=== PATIENT | male | born 1980 | race Caucasian/White ===

== ENCOUNTER 2018-10-16 07:31 | Emergency (ER) | payer OTHER ==
[2018-10-16 07:39] VITALS: BP 135/61
--- NOTE | 2018-10-16 07:54 | ED Physician Documentation ---
History of Present Illness - Stated complaint Stated Complaint: INFECTED WOUNDS - Chief complaint Chief Complaint: General - History obtained from History obtained from: Patient - History of Present Illness Timing: Other (This is a 37-year-old gentleman who is active duty in the [employer] has had recurrent problems with MRSA and has 3 lesions that are infected, one behind the left ear, one on the right medial thigh, and one on the left forearm. He was on antibiotics for same as recently as a month ago. No fevers.) Review of Systems Constitutional: denies: Fever, Chills Nose: reports: Reviewed and negative Cardiac: reports: Reviewed and negative Respiratory: reports: Reviewed and negative PD PAST MEDICAL HISTORY - Present Medications Home Medications: Ambulatory Orders Medication Instructions Recorded Confirmed Chlorhexidine Gluconate [Hibiclens] 10 ml TP DAILY #1 bot 10/16/18 Ibuprofen [Motrin] 800 mg PO Q8H PRN #30 tablet 10/16/18 Mupirocin 1 gm TP TID #2 oin.pf.bandar 10/16/18 Sulfamethoxazole/Trimethoprim 1 each PO BID #20 tablet 10/16/18 [Sulfamethoxazole-Tmp Ds Tablet] - Allergies Allergies/Adverse Reactions: Allergies Allergy/AdvReac Type Severity Reaction Status Date / Time No Known Drug Allergies Allergy Verified 10/16/18 07:39 - Social History Does the pt smoke?: No Smoking Status: Never smoker Does the pt drink ETOH?: No Does the pt have substance abuse?: No PD ED PE NORMAL - Vitals Vital signs reviewed: Yes - General General: Alert and oriented X 3, No acute distress - Extremities Extremities: Other (There is a small pimple-like lesion with surrounding cellulitis in the left mastoid area, a larger pointed abscess over the Left distal ulna, small pointed lesion on the right medial upper thigh.) - Neuro Neuro: Alert and oriented X 3, Normal speech Results - Vitals Vitals: Vital Signs - 24 hr 10/16/18 07:37 Temperature 36.6 C Heart Rate 78 Respiratory 20 Rate Blood Pressure 135/61 H O2 Saturation 100 Oxygen O2 Source Room air Procedures - Abscess I&D (location) L forearm Preparation: Alcohol, Lidocaine 1%, With epi Incision: Incised with scalpel, Purulent drainage, Loculations broken, Culture obtained Other: Pt tolerated well, Dressing applied, Antibiotic prescribed L ear Preparation: Alcohol, Lidocaine 1% Incision: Needle aspiration, Purulent drainage Other: Pt tolerated well, Dressing applied Departure - Departure Disposition: 01 Home, Self Care Clinical Impression: Abscess Condition: Good Record reviewed to determine appropriate education?: Yes Instructions: ED Abscess IandD Prescriptions: Chlorhexidine Gluconate [Hibiclens] 10 ml TP DAILY #1 bot Ibuprofen [Motrin] 800 mg PO Q8H PRN #30 tablet PRN Reason: PAIN &/OR FEVER Mupirocin 1 gm TP TID #2 oin.pf.bandar Sulfamethoxazole/Trimethoprim [Sulfamethoxazole-Tmp Ds Tablet] 1 each PO BID #20 tablet Comments: We are performing a wound culture, the results should be done in 48-72 hours. If antibiotic change is necessary we will call you. Return if worse in the meantime, especially if you develop increased pain, fevers, cannot keep down the medication. Otherwise follow-up with your physician in approximately 2-3 days.
== END 2018-10-16 08:54 | disposition home or self-care (01) ==
LOC: ED 07:31
DX: L02.415 Cutaneous abscess of right lower limb (principal); L02.414 Cutaneous abscess of left upper limb; H70.002 Acute mastoiditis without complications, left ear; Z86.14 Personal history of Methicillin resistant Staphylococcus aureus infection
CPT/HCPCS: 10060; 69000; 87070; 87181; 87205; 99283